=== PATIENT | male | born 1990 | race Caucasian/White ===

== ENCOUNTER 2017-01-22 20:14 | Emergency (ER) | payer OTHER, BC ==
[2017-01-22 20:21] VITALS: BP 120/53; PULSE 77; TEMP 97.9; BMI 25.0
--- NOTE | 2017-01-22 20:21 | PDOC ---
History of Present Illness - General History Source: Patient Exam Limitations: No Limitations - History of Present Illness Initial Comments: 01/22/17 20:33 The patient is a 26 year old male with no significant past medical history, who presents to the ED with a laceration to the 5th digit of the left hand. Patient states a piece of glass cut into his pinky after a plate broke. Patient denies fever, chills, nausea, vomiting. Patient does not remember when his last tetanus shot was. Patient is otherwise healthy and has no other complaints. PAST MEDICAL HISTORY: no significant history PAST SURGICAL HISTORY: no significant history FAMILY HISTORY: no pertinent history SOCIAL HISTORY: Pt lives with family and is employed. MEDICATIONS: reviewed ALLERGIES: As per nursing notes ROS General: No fevers or chills, no weakness, no weight loss HEENT: No change in vision. No sore throat,. No ear pain CardioVascular: No chest pain or shortness of breath Respiratory:No cough, or wheezing. Gastrointestinal: no nausea, vomiting, diarrhea or constipation, No rectal bleeding Genitourinary: No dysuria, hematuria, or frequency Musculoskeletal: No joint or muscle pain or swelling Neurologic: No headache, vertigo, dizziness or loss of consciousness Psychiatric: nor depression Skin: + laceration to the 5th metacarpal of the left hand. Endocrine: no increased thirst or abnormal weight change Allergic: no skin or latex allergy All other systems reviewed and normal Exam: GENERAL: The patient is awake, alert, and fully oriented, in no acute distress. HEAD: Normal with no signs of trauma. EYES: Pupils equal, round and reactive to light, extraocular movements intact, sclera anicteric, conjunctiva clear. EXTREMITIES: Normal range of motion, no edema. NEUROLOGICAL: Normal speech, normal gait. PSYCH: Normal mood, normal affect. SKIN: Laceration on the palmar side of the left 5th distal phalanx 2cm in length. Active bleeding on laceration. Full range of motion of the finger. Neurovascular is intact. <Aleksandr Mazariegos - Last Filed: 01/22/17 20:46> - General History Source: Patient Exam Limitations: No Limitations - History of Present Illness Initial Comments: 01/22/17 21:05 A portion of this note was documented by scribe services under my direction. I have reviewed the details of the note, within reason, and agree with the documentation. The case summary and management plan written by me. Procedure note laceration repair Left fifth finger was anesthetized via local infiltration with lidocaine no epinephrine. Tourniquet was applied to the base of the finger and the laceration examining the blood this field There is no tendon injury on examination. Laceration was irrigated with normal saline Laceration was closed with a total of 4 sutures of 4-0 Ethilon Sterile dressing and bacitracin was applied post laceration repair patient tolerated well Assessment and plan: This is a 26-year-old male who comes in with a laceration to the distal phalanx of his left fifth finger. There is no tendon injury. 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 Patient discharged home and told to return in 10 days for suture removal <Ricky Mcdonald I - Last Filed: 01/22/17 21:09> - General Chief Complaint: Injury Stated Complaint: LH 5TH FINGER INJURY Time Seen by Provider: 01/22/17 20:21 Past History <Aleksandr Mazariegos - Last Filed: 01/22/17 20:46> - Psycho/Social/Smoking Cessation Hx Suicidal Ideation: No Smoking History: Never smoked <Ricky Mcdonald I - Last Filed: 01/22/17 21:09> - Past Medical History Allergies/Adverse Reactions: Allergies Allergy/AdvReac Type Severity Reaction Status Date / Time No Known Allergies Allergy Unverified 01/22/17 20:18 Home Medications: Ambulatory Orders NK [No Known Home Medication] 01/22/17 *Physical Exam - Vital Signs Last Vital Signs Temp Pulse Resp BP Pulse Ox 97.9 F 77 16 120/53 98 01/22/17 20:19 01/22/17 20:19 01/22/17 20:19 01/22/17 20:19 01/22/17 20:19 <Aleksandr Mazariegos - Last Filed: 01/22/17 20:46> - Vital Signs Last Vital Signs Temp Pulse Resp BP Pulse Ox 97.9 F 77 16 120/53 98 01/22/17 20:19 01/22/17 20:19 01/22/17 20:19 01/22/17 20:19 01/22/17 20:19 <Ricky Mcdonald I - Last Filed: 01/22/17 21:09> *DC/Admit/Observation/Transfer - Attestations Scribe Attestion: 01/22/17 20:34 Documentation prepared by Aleksandr Mazariegos, acting as medical coding technician for Ricky Mcdonald MD. <Aleksandr Mazariegos - Last Filed: 01/22/17 20:46> - Discharge Dispostion Admit: No <Ricky Mcdonald I - Last Filed: 01/22/17 21:09> Diagnosis at time of Disposition: Laceration of finger Qualifiers: Encounter type: initial encounter Finger: little finger Damage to nail status: without damage Foreign body presence: without foreign body Laterality: left Qualified Code(s): S61.217A - Laceration without foreign body of left little finger without damage to nail, initial encounter - Discharge Dispostion Disposition: HOME Condition at time of disposition: Stable - Referrals Referrals: Maranda Aguirre [Primary Care Provider] - - Patient Instructions Printed Discharge Instructions: Laceration Repair Additional Instructions: Keep the finger dry for the next 48 hours. If you work make sure you wear a glove or something over the finger to keep it dry.if you get it wet taken off whenever you are wearing and dry the finger and put on a dry glove. Return in 10 days for suture removal. Tylenol or Motrin for pain. Return to the emergency department immediately with ANY new, persistent or worsening symptoms. Continue any medications as previously prescribed by your physician. Thank you for coming to the Emergency Department today for your care. It was a pleasure to see you today. Please note that your evaluation is INCOMPLETE until you follow-up with your doctor. - Post Discharge Activity Work/School Note: Back to Work
[2017-01-22] MEDS ORDERED: DIPHTH,PERTUSS(ACELL),TET 0.5 ML DISP.SYRIN IM ONE (21:09)
== END 2017-01-22 21:18 | disposition home or self-care (01) ==
LOC: FER 20:14
PROC: 0HQGXZZ Repair Left Hand Skin, External Approach (ICD-10-PCS; principal; 2017-01-22)
PROC: 3E0234Z Introduction of Serum, Toxoid and Vaccine into Muscle, Percutaneous Approach (ICD-10-PCS; 2017-01-22)
DX: S61.217A Laceration without foreign body of left little finger without damage to nail, initial encounter (principal); W25.XXXA Contact with sharp glass, initial encounter; Y93.89 Activity, other specified; Y92.9 Unspecified place or not applicable
CPT/HCPCS: 90715; 99281-25